=== PATIENT | female | born 1950 | race African-American/Black ===

== ENCOUNTER 2020-03-04 11:36 | Emergency (ER) | payer MEDICARE, OTHER ==
--- NOTE | 2020-03-04 12:20 | ER Document Report ---
ED Medical Screen (RME) - General Chief Complaint: Leg Pain Stated Complaint: LEFT LEG PAIN Time Seen by Provider: 03/04/20 12:14 Primary Care Provider: FIDE HAWKINS [Primary Care Provider] - Follow up as needed Mode of Arrival: Wheelchair Information source: Patient Notes: 70-year-old female presented to ED for complaint of left leg and back pain. She states it started in August and is gotten a whole lot worse. She states the whole leg hurts. She states she has to wheel herself around nonindustrial because she cannot walk on the leg. She states she does walk on a treadmill and she does know she injured it doing that or what is going on. She states she also has low back pain and she has had a history of that but that is much worse. She has a history of high cholesterol high blood pressure and diabetes. She states she does not smoke drink or use any drugs. We will get x-ray of the low back the hip knee and ankle of the left leg and a venous Doppler and have her seen by another provider. I have greeted and performed a rapid initial assessment of this patient. A comprehensive ED assessment and evaluation of the patient, analysis of test results and completion of medical decision making process will be conducted by an additional ED providers. - Related Data Allergies/Adverse Reactions: diphenhydramine HCl [From Benadryl] Allergy (Mild, Verified 10/12/11 17:31) Penicillins Allergy (Mild, Verified 10/12/11 15:58) RASH Sulfa (Sulfonamide Antibiotics) Allergy (Mild, Verified 10/12/11 15:58) RASH Past Medical History - Social History Frequency of alcohol use: None Drug Abuse: None - Past Medical History Cardiac Medical History: Reports: Hx Hypercholesterolemia, Hx Hypertension Denies: Hx Heart Attack Pulmonary Medical History: Denies: Hx Asthma, Hx Tuberculosis Neurological Medical History: Denies: Hx Cerebrovascular Accident, Hx Seizures Endocrine Medical History: Reports: Hx Diabetes Mellitus Type 2 GI Medical History: Denies: Hx Hepatitis, Hx Hiatal Hernia, Hx Ulcer Psychiatric Medical History: Reports: Hx Depression Infectious Medical History: Denies: Hx Hepatitis Past Surgical History: Reports: Hx Tubal Ligation. Denies: Hx Appendectomy, Hx Bowel Surgery, Hx Section, Hx Cholecystectomy, Hx Coronary Artery Bypass Graft, Hx Gastric Bypass Surgery, Hx Herniorrhaphy, Hx Hysterectomy, Hx Mastectomy, Hx Open Heart Surgery, Hx Pacemaker, Hx Tonsillectomy - Immunizations Hx Diphtheria, Pertussis, Tetanus Vaccination: Yes Physical Exam - Vital signs Vitals: Temp Pulse Resp BP Pulse Ox 98.7 F 97 18 121/71 100 03/04/20 11:43 03/04/20 11:43 03/04/20 11:43 03/04/20 11:43 03/04/20 11:43 Course - Vital Signs Vital signs: Temp Pulse Resp BP Pulse Ox 98.7 F 97 18 121/71 100 03/04/20 11:43 03/04/20 11:43 03/04/20 11:43 03/04/20 11:43 03/04/20 11:43 Doctor's Discharge - Discharge Referrals: LOCALMD,NO [Primary Care Provider] - Follow up as needed
--- NOTE | 2020-03-04 13:44 | RADIOLOGY REPORT (SQ) ---
EXAM DESCRIPTION: PELVIS AP IMAGES COMPLETED DATE/TIME: 03/04/2020 1:18 pm REASON FOR STUDY: Pain the entire left leg COMPARISON: None. NUMBER OF VIEWS: One view TECHNIQUE: An AP view of the pelvis was obtained. LIMITATIONS: None. FINDINGS: MINERALIZATION: Normal. HIPS: No acute fracture or dislocation. PELVIS AND SACRUM: The sacrum is partially obscured by overlying bowel. PUBIS AND ISCHIUM: The ilioischial and iliopectineal lines are intact. There is no diastasis of the pubic symphysis. LOWER LUMBAR SPINE: No acute findings. SOFT TISSUES: No abnormality. OTHER: No other finding. IMPRESSION: No acute osseous abnormality of the pelvis. COMMENT: Pelvic fractures are often occult on plain radiographs. If strong clinical suspicion for f racture, recommend CT or MR. TECHNICAL DOCUMENTATION: JOB ID: [id number] 2010 [employer]- All Rights Reserved Reading location - IP/workstation name: [email or web address]
--- NOTE | 2020-03-04 13:45 | RADIOLOGY REPORT (SQ) ---
EXAM DESCRIPTION: ANKLE LEFT COMPLETE IMAGES COMPLETED DATE/TIME: 03/04/2020 1:18 pm REASON FOR STUDY: Pain the entire left leg COMPARISON: None. NUMBER OF VIEWS: Three views. TECHNIQUE: AP, lateral, and oblique radiographic images acquired of the left ankle. LIMITATIONS: None. FINDINGS: MINERALIZATION: Normal. BONES: No acute fracture or dislocation. The talar dome is intact. JOINTS: The ankle mortise is intact. There is no joint effusion. SOFT TISSUES: No soft tissue swelling. OTHER: Enthesophytes at the calcaneal insertion of the Achilles tendon. The Achilles tendon silhouet te is intact. IMPRESSION: No acute osseous abnormality of the left ankle. TECHNICAL DOCUMENTATION: JOB ID: [id number] 2010 [employer]- All Rights Reserved Reading location - IP/workstation name: [email or web address]
--- NOTE | 2020-03-04 13:46 | RADIOLOGY REPORT (SQ) ---
EXAM DESCRIPTION: KNEE LEFT 4 VIEW IMAGES COMPLETED DATE/TIME: 03/04/2020 1:18 pm REASON FOR STUDY: Pain the entire left leg COMPARISON: None. NUMBER OF VIEWS: Four views. TECHNIQUE: AP, lateral, and both oblique radiographic images acquired of the left knee. LIMITATIONS: None. FINDINGS: MINERALIZATION: Normal. BONES: No acute fracture or dislocation. No worrisome bone lesions. JOINT: No effusion. SOFT TISSUES: No soft tissue swelling. No radio-opaque foreign body. OTHER: No other significant finding. IMPRESSION: NEGATIVE STUDY OF THE LEFT KNEE. NO RADIOGRAPHIC EVIDENCE OF ACUTE INJURY. TECHNICAL DOCUMENTATION: JOB ID: [id number] 2010 [employer]- All Rights Reserved Reading location - IP/workstation name: [email or web address]
--- NOTE | 2020-03-04 15:59 | RADIOLOGY REPORT (SQ) ---
EXAM DESCRIPTION: VENOUS UNILATERAL LOWER IMAGES COMPLETED DATE/TIME: 03/04/2020 3:49 pm REASON FOR STUDY: Pain left lower extremity COMPARISON: None. TECHNIQUE: Dynamic and static malcolm scale and color images acquired of the left leg venous system. Se lected spectral images acquired with additional compression and augmentation maneuvers. The contralat eral common femoral vein and saphenofemoral junction were also imaged. Images stored on PACS. LIMITATIONS: None. FINDINGS: COMMON FEMORAL: Normal phasicity, compression and augmentation. No visualized echogenic ma terial on malcolm scale. No defects on color images. FEMORAL: Normal compression and augmentation. No visualized echogenic material on malcolm scale. No defe cts on color images. POPLITEAL: Normal compression, augmentation. No visualized echogenic material on malcolm scale. No defec ts on color images. CALF VESSELS: Normal compression, augmentation. No visualized echogenic material on malcolm scale. No de fects on color images. GSV and SSV: Normal compression, augmentation. No visualized echogenic material on malcolm scale. No def ects on color images. ANY DEEP VENOUS INSUFFICIENCY: Not evaluated. ANY EVIDENCE OF POPLITEAL CYST: No. OTHER: No other significant finding. CONTRALATERAL COMMON FEMORAL VEIN AND SAPHENOFEMORAL JUNCTION: Normal phasicity, compression and augmentation. No visualized echogenic material on malcolm scale. No de fects on color images. IMPRESSION: NO EVIDENCE DVT OR SVT IN THE LEFT LEG. TECHNICAL DOCUMENTATION: JOB ID: [id number] 2010 [employer]- All Rights Reserved Reading location - IP/workstation name: [email or web address]
--- NOTE | 2020-03-04 19:44 | ER Document Report ---
ED Extremity Problem, Lower - General Chief Complaint: Leg Pain Stated Complaint: LEFT LEG PAIN Time Seen by Provider: 03/04/20 12:14 Primary Care Provider: CONNOR SAXENA MD [COMMUNITY BASED STAFF] - Follow up as needed Mode of Arrival: Wheelchair - HPI Patient complains to provider of: Pain Location: Leg Occurred: Other - Several months Onset/Duration: Gradual Associated symptoms: denies: Chest pain, Fainting, Fever Exacerbated by: Walking Notes: Patient is a 70-year-old female who presents with left leg pain for several months duration. She states she has seen the [facility] several times. They did x-rays and an ultrasound that was normal. Patient also saw a family doctor who said that she had to do exercises to help it feel better. Patient states that pain is worsening. It initially started into her thigh and then went into her lower leg. The pain feels like it shoots down her whole leg. Denies any numbness or weakness. It hurts to walk. No fevers or chills. No abdominal pain. No dysuria. She has occasional lower back pain but not now currently. She fell prior to this starting several months ago. She takes aleve on occasion which helps the symptoms. States she did have prediabetes and high blood pressure but stopped her medication years ago. - Related Data Allergies/Adverse Reactions: diphenhydramine HCl [From Benadryl] Allergy (Mild, Verified 10/12/11 17:31) Penicillins Allergy (Mild, Verified 10/12/11 15:58) RASH Sulfa (Sulfonamide Antibiotics) Allergy (Mild, Verified 10/12/11 15:58) RASH Past Medical History - General Information source: Patient - Social History Smoking Status: Never Smoker Frequency of alcohol use: None Drug Abuse: None Family History: Reviewed & Not Pertinent - Past Medical History Cardiac Medical History: Reports: Hx Hypercholesterolemia, Hx Hypertension Denies: Hx Heart Attack Pulmonary Medical History: Denies: Hx Asthma, Hx Tuberculosis Neurological Medical History: Denies: Hx Cerebrovascular Accident, Hx Seizures Endocrine Medical History: Reports: Hx Diabetes Mellitus Type 2 GI Medical History: Denies: Hx Hepatitis, Hx Hiatal Hernia, Hx Ulcer Psychiatric Medical History: Reports: Hx Depression Infectious Medical History: Denies: Hx Hepatitis Past Surgical History: Reports: Hx Tubal Ligation. Denies: Hx Appendectomy, Hx Bowel Surgery, Hx Section, Hx Cholecystectomy, Hx Coronary Artery B ypass Graft, Hx Gastric Bypass Surgery, Hx Herniorrhaphy, Hx Hysterectomy, Hx Mastectomy, Hx Open Heart Surgery, Hx Pacemaker, Hx Tonsillectomy - Immunizations Hx Diphtheria, Pertussis, Tetanus Vaccination: Yes Review of Systems - Review of Systems Notes: CONSTITUTIONAL: No fever, fatigue or weight loss. SKIN: No rash. HENT: No congestion, ear pain, or sore throat. EYES: No recent vision problems or eye pain. ENDOCRINE: No polyuria or polydipsia. CARDIOVASCULAR: No chest pain or edema. RESPIRATORY: No cough, shortness of breath, congestion, or wheezing. GASTROINTESTINAL: No abdominal pain, nausea, vomiting, bloody stools or diarrhea. GENITOURINARY: No dysuria. MUSCULOSKELETAL: No joint pain or swelling. Positive for left leg pain. LYMPHATIC: No swollen glands. NEUROLOGIC: No seizures. No headache, focal weakness or sensory changes. HEMATOLOGIC: No unusual bruising or bleeding. PSYCHIATRIC: No depression or anxiety. Physical Exam - Vital signs Vitals: Temp Pulse Resp BP Pulse Ox 98.7 F 97 18 121/71 100 03/04/20 11:43 03/04/20 11:43 03/04/20 11:43 03/04/20 11:43 03/04/20 11:43 - Notes Notes: VITAL SIGNS: Within normal limits. GENERAL: No acute distress, non-toxic appearance. HEAD: Normal with no signs of head trauma. EYES: EOMI, conjunctiva normal, no discharge. EARS: Hearing grossly intact. NOSE: Normal. NECK: Normal range of motion, no tenderness, supple, no lymphadenopathy, No adenopathy, no JVD. CHEST: Clear breath sounds bilaterally. No wheezes, rales, or rhonchi. CARDIAC: Regular rate and rhythm. S1 and S2. VASCULAR: No Edema. Peripheral pulses normal and equal in all extremities. Strong bilateral dorsalis pedis pulses. ABDOMEN: Normal and soft with no tenderness. GENITOURINARY: Normal, No tenderness LYMPATHTIC: No lymphadenopathy noted. MUSCULOSKELETAL: Good range of motion of all major joints. Extremities without clubbing, cyanosis or edema. Normal motion of left lower extremity. Strength 5/5. Sensation is intact. Reproducible pain at palpation of left lateral hip. Nontender to palpation of spine. No step-offs palpated. No rashes. NEUROLOGICAL: Alert and oriented x 3. No focal sensory or strength deficits. Speech normal. Follows commands appropriately. PSYCHIATRIC: Normal Affect, judgement and mood. SKIN: Normal appearance with no rashes or lesions. Course - Re-evaluation Re-evalutation: 03/05/20 00:14 Patient is alert and in no acute distress. She has full range of motion of her lower extremities. X-rays and ultrasound were negative. I did obtain a CAT scan of her lumbar spine to evaluate for stenosis or fractures. She does have some degenerative changes and stenosis at the lower lumbar levels. Possible etiology could be radiculopathy from the lumbar pain. The pain travels down her left lateral leg and into her medial foot. It is also reproducible with palpat ion of her left lateral hip. Possible this could be L4/L5 radiculopathy. Discussed all results with the patient. Told her that she can take Aleve and alternate with Tylenol. Patient will need to follow-up with her family doctor as she may require physical therapy or possible injections if symptoms do not improve with anti-inflammatories. She and her son are agreeable to this. She was given strict return precautions including weakness, numbness, any change in symptoms. - Vital Signs Vital signs: Temp Pulse Resp BP Pulse Ox 98.7 F 97 18 121/71 100 03/04/20 11:43 03/04/20 11:43 03/04/20 11:43 03/04/20 11:43 03/04/20 11:43 - Laboratory Result Diagrams: 03/04/20 19:45 03/04/20 19:45 Laboratory results interpreted by me: 03/04/20 03/04/20 03/04/20 19:45 19:45 21:05 RDW 14.2 H Carbon Dioxide 31 H BUN 25 H Est GFR (MDRD) Non-Af 55 L Glucose 120 H Urine Protein 30 H Urine Blood MODERATE H Urine Urobilinogen 2.0 H Discharge - Discharge Clinical Impression: Left leg pain Radiculopathy Qualifiers: Spinal region: lumbar Qualified Code(s): M54.16 - Radiculopathy, lumbar region Disposition: HOME, SELF-CARE Instructions: Leg Pain Nonspecific ([facility]), Radiculopathy ([facility]) Additional Instructions: Follow-up with the family doctor. Take Tylenol and Aleve as directed. You may use warm compresses in the area. Return for any weakness, numbness, worsening pain. Referrals: CONNOR SAXENA MD [COMMUNITY BASED STAFF] - Follow up as needed
[2020-03-04 20:02] LABS: ABSOLUTE LYMPHOCYTES (AUTO) 1.7 10^3/uL (0.5-4.7); ABSOLUTE MONOCYTES (AUTO) 0.4 10^3/uL (0.1-1.4); ABSOLUTE NEUT (AUTO) 2.2 10^3/uL (1.7-8.2); EOSINOPHILS % (AUTO) 1.1 % (0-6); HEMATOCRIT 36.6 % (36.0-47.0); HEMOGLOBIN 12.3 g/dL (12.0-15.5); LYMPHOCYTES % (AUTO) 38.5 % (13-45); MEAN CORPUSCULAR HEMOGLOBIN 27.7 pg (27.0-33.4); MEAN CORPUSCULAR HGB CONC 33.5 g/dL (32.0-36.0); MEAN CORPUSCULAR VOLUME 83 fl (80-97); MONOCYTES % (AUTO) 8.8 % (3-13); PLATELET COUNT 272 10^3/uL (150-450); RED BLOOD COUNT 4.43 10^6/uL (3.72-5.28); RED CELL DISTRIBUTION WIDTH 14.2 % (11.5-14.0); SEGMENTED NEUTROPHILS % (AUTO) 50.6 % (42-78); TOTAL CELLS COUNTED % (AUTO) 100 %; WHITE BLOOD COUNT 4.4 10^3/uL (4.0-10.5)
[2020-03-04 20:12] LABS: ANION GAP 6 (5-19); BLOOD UREA NITROGEN 25 mg/dL (7-20); CALCIUM 9.6 mg/dL (8.4-10.2); CARBON DIOXIDE 31 mmol/L (22-30); CHLORIDE 102 mmol/L (98-107); GLUCOSE 120 mg/dL (75-110); POTASSIUM 4.1 mmol/L (3.6-5.0)
--- NOTE | 2020-03-04 20:35 | RADIOLOGY REPORT (SQ) ---
CT LUMBAR SPINE WITHOUT IV CONTRAST CT PELVIS WITHOUT IV CONTRAST HISTORY: Low back pain, radiculopathy left leg, hip pain. COMPARISON: None. TECHNIQUE: CT scan of the pelvis and lumbar spine was performed without IV contrast. This exam was performed according to our departmental dose-optimization program, which includes automated exposure control, adjustment of the mA and/or kV according to patient size and/or use of iterative reconstruction technique. FINDINGS: PELVIS: No acute fractures visualized. The bilateral hip joints, sacroiliac joints, and pubic symphysis are preserved. The muscles and tendons of the pelvis are preserved. No acute intrapelvic findings are seen. LUMBAR SPINE: No acute compression fracture is seen. The lumbar alignment is maintained. There is mild degenerative disc disease throughout the lumbar spine. The facet joints are preserved. There are small disc bulges at L4-L5 and L5-S1 with mild to moderate canal stenosis at these levels. IMPRESSION: 1. No acute pelvic fracture. 2. Mild degenerative changes of the lower lumbar spine, without acute fracture or subluxation. 3. Degenerative disc disease at L4-L5 and L5-S1 with mild to moderate spinal canal stenosis at these levels.
[2020-03-04] MEDS ORDERED: ACETAMINOPHEN 325 MG TABLET PO ONE (21:21)
[2020-03-04 21:30] LABS: APPEARANCE,URINE CLEAR; BILIRUBIN,URINE NEGATIVE (NEGATIVE); COLOR,URINE YELLOW; GLUCOSE, URINE NEGATIVE (NEGATIVE); KETONES,URINE NEGATIVE (NEGATIVE); PROTEIN,URINE 30 mg/dL (NEGATIVE); URINE SPECIFIC GRAVITY 1.023
[2020-03-05 00:49] VITALS: BP 134/81
== END 2020-03-05 00:50 | disposition home or self-care (01) ==
LOC: ER 11:36
DX: M54.16 Radiculopathy, lumbar region (principal); M79.605 Pain in left leg; M25.552 Pain in left hip; M79.672 Pain in left foot; M51.37 Other intervertebral disc degeneration, lumbosacral region; M48.07 Spinal stenosis, lumbosacral region; Z88.0 Allergy status to penicillin; Z88.2 Allergy status to sulfonamides; I10 Essential (primary) hypertension; E11.9 Type 2 diabetes mellitus without complications
CPT/HCPCS: 99285; 36415; 85025; 80048; 81001; 93971; 73610; 73564; 72170; 72131; 72192; A9270